=== PATIENT | female | born 1935 | race Caucasian/White ===

== ENCOUNTER 2017-07-27 09:01 | Day surgery (SDC) | payer OTHER, BC ==
[~2017-07-27] VITALS: Ht 165.1 cm; Wt 88.0 kg
[~2017-07-27 09:01] MED LIST: BENICAR40 MG PO; COZAAR100 MG PO; LO-DOSE ASPIRIN81 M1 PO; LOPRESSOR25 MG PO; MEGARED OMEGA-1 EAC2 PO; NORVASC10 MG PO; SYNTHROID75 MCG PO; TEARS NATURALE1 EACH BOTH EYES; TUMS500 MG PO; XANAX0.5 MG PO; ZANTAC150 MG PO; ZOCOR40 MG PO; ZYRTEC10 M3 PO
[2017-07-27] MEDS ORDERED: TYLENOL ARTHRI650 MG PO (09:54)
[2017-07-27 09:56] VITALS: BP 123/61
[2017-07-27] MEDS ORDERED: NORCO 5/3251 TABLET PO (11:34)
[2017-07-27 12:35] VITALS: BP 147/76
[2017-07-27 13:14] VITALS: BP 147/65
== END 2017-07-27 13:30 | disposition home or self-care (01) ==
LOC: SDC 09:01
PROVIDERS: Surgery
PROC: 0WQF0ZZ Repair Abdominal Wall, Open Approach (ICD-10-PCS; principal; 2017-07-27)
DX: K43.2 Incisional hernia without obstruction or gangrene (principal); Z90.49 Acquired absence of other specified parts of digestive tract; Z79.82 Long term (current) use of aspirin; J44.9 Chronic obstructive pulmonary disease, unspecified; I10 Essential (primary) hypertension; E78.5 Hyperlipidemia, unspecified; E03.9 Hypothyroidism, unspecified; I34.0 Nonrheumatic mitral (valve) insufficiency; G47.33 Obstructive sleep apnea (adult) (pediatric); M81.0 Age-related osteoporosis without current pathological fracture; E11.9 Type 2 diabetes mellitus without complications; E66.9 Obesity, unspecified; Z68.32 Body mass index [BMI] 32.0-32.9, adult; Z80.0 Family history of malignant neoplasm of digestive organs; Z80.1 Family history of malignant neoplasm of trachea, bronchus and lung; Z82.61 Family history of arthritis; Z87.891 Personal history of nicotine dependence; Z88.8 Allergy status to other drugs, medicaments and biological substances; Z91.048 Other nonmedicinal substance allergy status
CPT/HCPCS: 82948; 88302; J0690; J1170; J1885; J3010